=== PATIENT | male | born 1950 | race Caucasian/White ===

== ENCOUNTER → 2017-07-13 | Outpatient (CLI) | payer MEDICARE ==
[~2017-07-13] MED LIST: ASPI-496 PO; DICL75TA2 PO; GABAPENTIN PO; MULT-224 PO; OXYC5CAP2 PO; SIMV10TA3 PO; TRAMADOL PO
== END | disposition home or self-care (01) ==
LOC: CFH 06:42
PROVIDERS: ATTEND Internal Medicine Cardiovascular Disease
DX: I35.8 Other nonrheumatic aortic valve disorders (principal)
CPT/HCPCS: 78452; 93017; 93306; A9502

== ENCOUNTER → 2019-09-22 | Outpatient (CLI) | payer MEDICARE ==
[~2019-09-22] MED LIST changes: -DICL75TA2 PO; +DICL75TA3 PO; -MULT-224 PO; +MULT-642 PO; +REGADENOSON 0.4 MG/5 ML SYRINGE ONE; +SIMV10TA18 PO; -SIMV10TA3 PO
== END | disposition home or self-care (01) ==
LOC: CFH 10:45
PROVIDERS: ATTEND Internal Medicine Cardiovascular Disease
DX: I08.2 Rheumatic disorders of both aortic and tricuspid valves (principal); I48.0 Paroxysmal atrial fibrillation
CPT/HCPCS: 78452; 93017; 93306; A9502; J2785

== ENCOUNTER 2019-12-08 08:00 | Outpatient (CLI) | payer MEDICARE ==
[~2019-12-08 08:00] MED LIST changes: -REGADENOSON 0.4 MG/5 ML SYRINGE ONE
== END 2019-12-08 23:59 | disposition home or self-care (01) ==
LOC: STAR 08:00
PROVIDERS: ATTEND Orthopaedic Surgery
DX: Z01.818 Encounter for other preprocedural examination (principal); Z11.59 Encounter for screening for other viral diseases
CPT/HCPCS: 36415; 87635

== ENCOUNTER → 2019-12-09 | Outpatient (CLI) | payer MEDICARE ==
[~2019-12-09] MED LIST changes: +OMNIPAQUE 350 MG/ML, 150 ML BOTTLE ONE
[2019-12-09 16:07] LABS: BASOPHILS # (AUTO) 0.02 x10^3/uL (0-0.1); BASOPHILS % (AUTO) 1 % (0-1); EOSINOPHILS # (AUTO) 0.17 x10^3/uL (0-0.4); EOSINOPHILS % (AUTO) 4 % (1-7); LYMPHOCYTES # (AUTO) 1.68 x10^3/uL (1-3.4); LYMPHOCYTES % (AUTO) 36 % (22-44); MD NO; MEAN CORPUSCULAR HEMOGLOBIN 30.3 pg (27.5-34.5); MEAN CORPUSCULAR HGB CONC 32.8 g/dL (33.2-36.2); MEAN CORPUSCULAR VOLUME 92.2 fL (81-97); MEAN PLATELET VOLUME 8.5 fL (7.4-10.4); MONOCYTES # (AUTO) 0.41 x10^3/uL (0.2-0.8); MONOCYTES % (AUTO) 9 % (2-9); NEUTROPHILS # (AUTO) 2.38 x10^3/uL (1.8-6.8); NEUTROPHILS % (AUTO) 51 % (42-75); PLATELET COUNT 150 x10^3/uL (130-400); RED BLOOD COUNT 5.16 x10^6/uL (4.38-5.82); RED CELL DISTRIBUTION WIDTH 13.9 % (9.4-14.8)
[2019-12-09 16:31] LABS: ANION GAP 2 mmol/L (5-15); CALCIUM 8.8 mg/dL (8.5-10.1); CHLORIDE 107 mmol/L (98-107); CREATININE 1.29 mg/dL (0.7-1.3)
== END | disposition home or self-care (01) ==
LOC: CFH 11:59
PROVIDERS: ATTEND Internal Medicine Cardiovascular Disease
DX: I10 Essential (primary) hypertension (principal); I48.0 Paroxysmal atrial fibrillation; I48.91 Unspecified atrial fibrillation; R73.03 Prediabetes
CPT/HCPCS: 36415; 71046; 75572; 80048; 85025; Q9967

== ENCOUNTER 2019-12-18 06:00 | Observation (INO) | payer MEDICARE ==
[~2019-12-18] VITALS: Ht 177.8 cm; Wt 97.0 kg
[~2019-12-18 06:00] MED LIST changes: -OMNIPAQUE 350 MG/ML, 150 ML BOTTLE ONE
[2019-12-18] MEDS ORDERED: SODIUM CHLORIDE 0.9% 1,000 ML IV SCH ×2 (06:22→06:30)
[2019-12-18 06:28] VITALS: BP 121/67
[2019-12-18] MEDS ORDERED: DRON400T PO (06:36)
[2019-12-18] MEDS ORDERED: ATOR20TA37 PO (06:36)
[2019-12-18] MEDS ORDERED: RIVA20TA PO (06:36)
[2019-12-18] MEDS ORDERED: METO-282 PO (06:36)
[2019-12-18] MEDS ORDERED: MIDAZOLAM 1 MG/ML, 2ML ONE (08:19)
[2019-12-18] MEDS ORDERED: FENTANYL PF 250 MCG/5ML ONE (08:19)
[2019-12-18] MEDS ORDERED: SUGAMMADEX 200 MG/2 ML IVPush ONE (08:30)
[2019-12-18] MEDS ORDERED: ROCURONIUM 10 MG/ML,10ML ONE (08:30)
[2019-12-18] MEDS ORDERED: SUCCINYLCHOLINE 20 MG/ML, 10ML ONE (08:30)
[2019-12-18] MEDS ORDERED: ONDANSETRON 2MG/ML, 2ML ONE (08:30)
[2019-12-18] MEDS ORDERED: DEXAMETHASONE 4 MG/ML, 1ML ONE (08:30)
[2019-12-18] MEDS ORDERED: CEFAZOLIN 1,000 MG ONE (08:30)
[2019-12-18] MEDS ORDERED: PROPOFOL 10 MG/ML, 20ML ONE (08:30)
[2019-12-18] MEDS ORDERED: LIDOCAINE 2%, 20ML ONE (08:44)
[2019-12-18] MEDS ORDERED: EPHEDRINE 50 MG/ML, 1ML ONE (08:53)
[2019-12-18] MEDS ORDERED: FENTANYL PF 100 MCG/2ML ONE (10:49)
[2019-12-18] MEDS ORDERED: FENTANYL PF 100 MCG/2ML IV PRN (12:00)
[2019-12-18] MEDS: RIVAROXABAN 20 MG TABLET PO SCH (12:00)
[2019-12-18] MEDS ORDERED: OXYcodone 5 MG/5 ML ORAL.SOL UDC PO PRN (12:00)
[2019-12-18] MEDS ORDERED: PROMETHAZINE 12.5 MG SUPP PR PRN (12:00)
[2019-12-18] MEDS ORDERED: PROMETHAZINE 25 MG/ML, 1ML IVPush PRN (12:00)
[2019-12-18] MEDS ORDERED: ACETAMINOPHEN 325 MG TABLET PO PRN (12:00)
[2019-12-18] MEDS ORDERED: HYDROmorphone 1 MG/ML, 1ML INJ IVPush PRN (12:00)
[2019-12-18] MEDS ORDERED: ONDANSETRON 2MG/ML, 2ML IVPush PRN (12:00)
[2019-12-18] MEDS ORDERED: LABETALOL 5MG/ML, 20ML IV PRN (12:00)
[2019-12-18] MEDS ORDERED: MIDAZOLAM 1 MG/ML, 2ML IV PRN (12:00)
[2019-12-18] MEDS ORDERED: MEPERIDINE/PF 25MG/0.5ML IVPush PRN (12:00)
[2019-12-18] MEDS ORDERED: hydrALAzine 20 MG/ML, 1ML IV PRN (12:00)
[2019-12-18] MEDS ORDERED: DIPHENHYDRAMINE 50 MG/ML, 1ML IVPush PRN (12:00)
[2019-12-18] MEDS ORDERED: EPHEDRINE 50 MG/ML, 1ML IVPush PRN (12:00)
[2019-12-18] MEDS ORDERED: ALBUTEROL SULFATE 2.5 MG/3 ML NPPB PRN (12:00)
[2019-12-18] MEDS ORDERED: DIAZEPAM 5 MG/ML, 2ML IVPush PRN (12:00)
[2019-12-18] MEDS ORDERED: ACETAMINOPHEN 650 MG/20.3 ML UDC ONE (12:31)
[2019-12-18 14:20] VITALS: BP 122/74
[2019-12-18] MEDS ORDERED: DRONEDARONE 400MG TABLET PO SCH (17:00)
[2019-12-18 20:31] VITALS: BP 113/69
[2019-12-18] MEDS ORDERED: ATORVASTATIN 20 MG TABLET PO SCH (21:00)
[2019-12-18] MEDS ORDERED: RIVAROXABAN 20 MG TABLET PO SCH (21:00)
[2019-12-18] MEDS: COLCHICINE 0.6 MG CAPSULE PO SCH (21:43)
[2019-12-19 02:21] VITALS: BP 127/66
[2019-12-19] MEDS ORDERED: OMEPRAZOLE 20 MG CAPSULE.DR PO SCH (06:00)
[2019-12-19 07:13] VITALS: BP 125/63
[2019-12-19] MEDS: RIVAROXABAN 20 MG TABLET PO SCH (08:00)
[2019-12-19] MEDS ORDERED: COLC0.6C3 PO (08:19)
[2019-12-19] MEDS ORDERED: METOPROLOL SUCCINATE 25 MG TAB.ER.24H PO SCH (09:00)
[2019-12-19] MEDS ORDERED: MULTIVITAMIN 1 TABLET PO SCH (09:00)
[2019-12-19] MEDS: COLCHICINE 0.6 MG CAPSULE PO SCH (09:50)
== END 2019-12-19 10:37 | disposition home or self-care (01) ==
LOC: CACL 06:00 → ORIP 12:03 → 5SO 15:05 → DCLOUNGE 12-19 10:31
PROVIDERS: ADMIT Internal Medicine Cardiovascular Disease; ATTEND Internal Medicine Cardiovascular Disease
DX: I48.0 Paroxysmal atrial fibrillation (principal); I10 Essential (primary) hypertension; E78.5 Hyperlipidemia, unspecified; J44.9 Chronic obstructive pulmonary disease, unspecified; I25.10 Atherosclerotic heart disease of native coronary artery without angina pectoris; G47.33 Obstructive sleep apnea (adult) (pediatric); E66.9 Obesity, unspecified; F17.200 Nicotine dependence, unspecified, uncomplicated
CPT/HCPCS: 85347; 93308; 93312; 93321; 93325; 93613; 93656; 93662; C1730; C1732; C1759; C1766; C1893; C1894; G0378; J0330; J0690; J1100; J2250; J2405; J2704; J3010; J3490; 36415; 87635